=== PATIENT | female | born 1995 | race Two or more races ===

== ENCOUNTER 2016-08-26 04:32 | Emergency (ER) | payer BC, OTHER ==
[~2016-08-26] VITALS: Ht 167.6 cm; Wt 68.0 kg
[2016-08-26 05:40] VITALS: BP 114/65
--- NOTE | 2016-08-26 05:40 | NUR ---
PT AMBULAOTRY TO ER BED 7 PT STATES, "WENT TO [facility] ON SUNDAY; I THINK SOMETHING BIT MY LIP; NOW SWOLLEN" PT AOX4 RR EVEN AND UNLABORED. NO SOB NOTED. NAD NOTED. NO NVD AT THIS TIME. PT NOT DIAPHORETIC. PT WAITING FOR MD BRANDT.
--- NOTE | 2016-08-26 06:06 | NUR ---
DR. ROBISON AT BEDSIDE FOR EVAL.
== END 2016-08-26 06:22 | disposition home or self-care (01) ==
LOC: ER 04:32
DX: O98.511 Other viral diseases complicating pregnancy, first trimester (principal); B00.1 Herpesviral vesicular dermatitis; Z3A.01 Less than 8 weeks gestation of pregnancy
CPT/HCPCS: 99283; A4606; Z7610

== ENCOUNTER 2017-12-04 11:38 | Emergency (ER) | payer BC, OTHER ==
[~2017-12-04] VITALS: Ht 170.2 cm; Wt 72.6 kg
[2017-12-04 11:50] VITALS: BP 109/67
[2017-12-04] MEDS ORDERED: IBUPROFEN 600 MG TABLET PO ONE ×2 (12:05→12:30)
== END 2017-12-04 13:18 | disposition home or self-care (01) ==
LOC: ER 11:44
DX: R07.89 Other chest pain (principal)
CPT/HCPCS: 71045; 93005; 99284; A4606; Z7610

== ENCOUNTER 2019-08-19 10:39 | Emergency (ER) | payer OTHER ==
[~2019-08-19] VITALS: Ht 167.6 cm; Wt 77.1 kg
--- NOTE | 2019-08-19 11:00 | NUR ---
SEEN AND EXAMINED BY
--- NOTE | 2019-08-19 11:10 | NUR ---
URINE SPECIMEN COLLECTED AND SENT TO LAB.
--- NOTE | 2019-08-19 11:17 | NUR ---
PT IS WHEELED TO [facility] VIA WHEELCHAIR.
--- NOTE | 2019-08-19 11:27 | NUR ---
patient came back from x-ray
[2019-08-19 11:49] VITALS: BP 130/71
--- NOTE | 2019-08-19 11:49 | NUR ---
Patient discharged to home in stable condition. Written and verbal after care instructions given. Patient verbalizes understanding of instruction.
== END 2019-08-19 11:49 | disposition home or self-care (01) ==
LOC: ER 10:39
DX: S13.4XXA Sprain of ligaments of cervical spine, initial encounter (principal); S20.211A Contusion of right front wall of thorax, initial encounter; V49.49XA Driver injured in collision with other motor vehicles in traffic accident, initial encounter; Y93.89 Activity, other specified; Y92.413 State road as the place of occurrence of the external cause; Y99.8 Other external cause status
CPT/HCPCS: 71045-TC; 72040-TC; 84703-TC

== ENCOUNTER 2019-10-08 06:42 | Emergency (ER) | payer OTHER ==
[~2019-10-08] VITALS: Ht 167.6 cm; Wt 77.1 kg
--- NOTE | 2019-10-08 06:54 | NUR ---
PT PRESENTED TO THE ER WITH A C/O FEVER, SORE THROAT, BODY ACHES SINCE SUNDAY NIGHT. PT WAS TRIAGED AND TAKEN TO ER #6. PT TOOK 500MG TYLENOL AT 0100.
--- NOTE | 2019-10-08 06:54 | NUR ---
DR DELAROSA AT THE BED SIDE
[2019-10-08] MEDS ORDERED: IBUPROFEN 600 MG TABLET PO ONE ×2 (07:00→07:03)
[2019-10-08] MEDS ORDERED: ACETAMINOPHEN ES 500 MG TABLET PO ONE (07:00)
[2019-10-08] MEDS ORDERED: ACETAMINOPHEN ES 500 MG TABLET ONE (07:03)
--- NOTE | 2019-10-08 07:05 | NUR ---
REPORT TO ARNOLD HONG FOR [facility].
[2019-10-08 08:58] VITALS: BP 115/81
--- NOTE | 2019-10-08 08:59 | NUR ---
Patient discharged to home in stable condition. Written and verbal after care instructions given. Patient verbalizes understanding of instruction.
== END 2019-10-08 08:58 | disposition home or self-care (01) ==
LOC: ER 06:42
DX: J02.0 Streptococcal pharyngitis (principal); R50.9 Fever, unspecified; Z20.828 Contact with and (suspected) exposure to other viral communicable diseases
CPT/HCPCS: 87880; 99283; C9803; U0003; 86403-TC